=== PATIENT | female | born 1945 | race Caucasian/White ===

== ENCOUNTER → 2017-08-26 | Outpatient (CLI) | payer MEDICARE, OTHER ==
--- NOTE | 2017-08-26 13:50 | REPMRS ---
Patient History The patient states she has not had a clinical breast exam in over a year. Patient is postmenopausal. Family history of breast cancer in sister at age 50. Benign stereotatic breast biopsy of the left breast. Took hormonal contraceptives for 2 years. Took unspecified hormones for 5 years. Digital Woman Screen Mammo: August 26, 2017 - Exam #: [id number] Bilateral CC and MLO view(s) were taken. Technologist: Mariposa Baeza, Technologist Prior study comparison: March 07, 2015, digital woman screen mammo performed at [facility]. November 29, 2013, bilateral bilat screen digital mammo, performed at [facility] ([facility]). FINDINGS: The breast tissue is extremely dense which could obscure a lesion on mammography. There is no evidence of cancer on this mammogram. Large coarse benign appearing calcifications are present. No significant changes when compared with prior studies. ASSESSMENT: BI-RADS/ACR category 2 mammogram. Benign finding(s). Recommendation Routine screening mammogram of both breasts in 1 year (for women over age 40). This mammogram was interpreted with the aid of an FDA-approved computer-aided dectection system. Electronically Signed By: Roe Yan MD 08/26/17 [id number]
== END ==
LOC: M WHC 12:56
PROVIDERS: ATTEND Family Medicine
DX: Z12.31 Encounter for screening mammogram for malignant neoplasm of breast (principal)

== ENCOUNTER → 2019-05-18 | Outpatient (CLI) | payer MEDICARE, OTHER ==
--- NOTE | 2019-05-18 14:38 | REPMRS ---
Patient History The patient states she had a clinical breast exam in [id number]. Patient is postmenopausal. Family history of breast cancer at age 50 in sister. Benign stereotatic breast biopsy of the left breast. Took hormonal contraceptives for 2 years. Took unspecified hormones for 5 years. 3D TOMOSYNTHESIS WAS PERFORMED. The [facility] lifetime risk for breast cancer is 8.5%. Digital Woman Screen Mammo: May 18, 2019 - Exam #: [id number] Bilateral CC and MLO view(s) were taken. Technologist: Xochitl Hill Technologist Prior study comparison: August 26, 2017, digital woman screen mammo performed at [facility]. March 07, 2015, digital woman screen mammo performed at [facility] [employer] [facility]. FINDINGS: The breast tissue is extremely dense which could obscure a lesion on mammography. There has been no change in the appearance of the mammogram from the prior studies. There is a moderate amount of residual fibroglandular tissue which is fairly symmetric. There is no interval development of dominant mass, areas of architectural distortion, or clustered microcalcification typical of malignancy. Assessment: BI-RADS/ACR category 1 mammogram. Negative Mammogram. Recommendation Routine screening mammogram in 1 year (for women over age 40). This mammogram was interpreted with the aid of an FDA-approved computer-aided dectection system. Electronically Signed By: Roe Yan MD 05/18/19 [id number]
== END ==
LOC: M WHC 14:01
PROVIDERS: ATTEND Family Medicine
DX: Z12.31 Encounter for screening mammogram for malignant neoplasm of breast (principal); Z80.3 Family history of malignant neoplasm of breast

== ENCOUNTER → 2020-06-20 | Outpatient (CLI) | payer MEDICARE, OTHER ==
--- NOTE | 2020-06-20 13:59 | REPMRS ---
Patient History The patient states she had a clinical breast exam in 2019. Family history of breast cancer at age 50 in sister. Benign stereotatic breast biopsy of the left breast. Took hormonal contraceptives for 2 years. Took unspecified hormones for 5 years. 3D TOMOSYNTHESIS WAS PERFORMED. The [facility] lifetime risk for breast cancer is 8.0%. Volpara anay c. Digital Woman Screen Mammo: June 20, 2020 - Exam #: [id number] Bilateral CC and MLO view(s) were taken. Technologist: Ira Rothman, Technologist Prior study comparison: May 18, 2019, bilateral digital woman screen mammo performed at [facility]. August 26, 2017, digital woman screen mammo performed at [facility]. FINDINGS: The breast tissue is heterogeneously dense. This may lower the sensitivity of mammography. There has been no change in the appearance of the mammogram from the prior studies. There is a moderate amount of residual fibroglandular tissue which is fairly symmetric. There is no interval development of dominant mass, areas of architectural distortion, or clustered microcalcification typical of malignancy. Assessment: BI-RADS/ACR category 1 mammogram. Negative Mammogram. Recommendation Routine screening mammogram in 1 year (for women over age 40). This mammogram was interpreted with the aid of an FDA-approved computer-aided dectection system. Electronically Signed By: Roe Yan MD 06/20/20 [id number]
== END ==
LOC: M WHC 12:51
PROVIDERS: ATTEND Family Medicine
DX: Z12.31 Encounter for screening mammogram for malignant neoplasm of breast (principal); Z80.3 Family history of malignant neoplasm of breast

== ENCOUNTER 2021-07-08 07:28 | Outpatient (CLI) | payer MEDICARE, OTHER ==
[~2021-07-08] VITALS: Ht 154.9 cm; Wt 48.5 kg
[~2021-07-08 07:28] MED LIST: ALBUTEROL 90 MCG/ACT 8GM HFA INHALER INH PRN; ALBUTEROL SULFATE 2.5 MG/0.5 ML INH NEB SOLN INH PRN; EPINEPHrine INJ 1 MG/ML 1ML AMP IM PRN; NS 1,000 ML IV SCH; diphenhydrAMINE 50MG/ML VIAL (J1200) IV PRN; methylPREDNISolone 125MG 2ML VIAL IV PRN
[2021-07-08 09:24] VITALS: BP 153/70
[2021-07-08] MEDS ORDERED: BAMLANIVIMAB 700 MG, ETESEVIMAB 1,400 MG in NS 250 ML IV ONE (09:30)
[2021-07-08 09:56] VITALS: BP 162/78
[2021-07-08 10:24] VITALS: BP 138/70
[2021-07-08 11:24] VITALS: BP 146/81
== END 2021-07-08 11:24 | disposition home or self-care (01) ==
LOC: M OPCLI4PR 07:28
PROVIDERS: ATTEND Family Medicine
DX: U07.1 COVID-19 (principal)

== ENCOUNTER → 2023-07-22 | Outpatient (CLI) | payer MEDICARE, OTHER | LOC: M WHC 11:35 | PROVIDERS: ATTEND Family Medicine | DX: Z12.31 Encounter for screening mammogram for malignant neoplasm of breast (principal) ==

== ENCOUNTER → 2023-12-30 | Outpatient (CLI) | payer MEDICARE, OTHER | LOC: M WUC 11:44 | PROVIDERS: ATTEND Family Medicine | DX: R05.9 Cough, unspecified (principal) ==

== ENCOUNTER → 2024-08-17 | Outpatient (CLI) | payer MEDICARE, OTHER | LOC: M WHC 14:34 | PROVIDERS: ATTEND Family Medicine | DX: Z12.31 Encounter for screening mammogram for malignant neoplasm of breast (principal); R92.343 Mammographic extreme density, bilateral breasts ==

== ENCOUNTER → 2025-09-10 | Outpatient (CLI) | payer MEDICARE, OTHER | LOC: M WHC 12:49 | PROVIDERS: ATTEND Family Medicine | DX: Z12.31 Encounter for screening mammogram for malignant neoplasm of breast (principal) ==